=== PATIENT | male | born 1965 | race Caucasian/White ===

== ENCOUNTER 2019-06-17 06:01 | Observation (INO) | payer OTHER, SELFPAY ==
[2019-06-17] VITALS (20 sets, daily range): BP systolic 106–167; BP diastolic 61–95; PULSE 46–75; RESP 16–20; TEMP 36.2–36.6; O2SAT 94–99; BMI 28.3; BMI 28.0; BMI 28.1
--- NOTE | 2019-06-17 06:08 | ED.RN ---
called for ekg per rn request. no old ekgs in [facility]
--- NOTE | 2019-06-17 06:18 | RAD_ITS ---
STUDY: X-RAY CHEST REASON FOR EXAM: Male, 54 years old. Chest pain TECHNIQUE: Frontal and lateral views of the chest. COMPARISON: None. FINDINGS: Basal atelectasis/infiltrate. No focal consolidation. No pneumothorax. No pleural effusion. Normal size heart. Aortic calcifications. There are diffuse degenerative changes of the visualized thoracic spine. Cervical spine fusion device. There is degenerative osteoarthritis of the bilateral shoulders. Moderate stool in the visualized colon. RAD/Chest PA and Lateral IMPRESSION: Bilateral basilar atelectasis/infiltrate. No focal consolidation. Electronically Signed: Chadwick Alvarez, at 6:49 EDT Tel , Service support ,
--- NOTE | 2019-06-17 06:18 | EKG12_ITS ---
Test Reason : CP Blood Pressure : / mmHG Vent. Rate : 058 BPM Atrial Rate : 058 BPM P-R Int : 152 ms QRS Dur : 094 ms QT Int : 430 ms P-R-T Axes : 048 053 040 degrees QTc Int : 422 ms Sinus bradycardia with sinus arrhythmia Possible Left atrial enlargement Borderline ECG Confirmed by ARVIN SAUER, MEGHAN ([id number]), commissioning editor LEX SHAVER ([id number]) on 06/19/2019 1:48:03 PM Referred By: ARIADNA Confirmed By:MARIBEL SHERIDAN MD
--- NOTE | 2019-06-17 06:19 | ED.VIS.GEN ---
History of Present Illness Chief Complaint: Chest Pain Narrative: This patient is a 54-year-old male who presents with chest pain. This is actually been occurring for the last couple of weeks. He runs every other day. During his runs he develops central chest tightness with pain radiating down his left arm. He rates the severity is about 5 out of 10. Today his symptoms were worsening also felt like he had a collar around his neck. Currently he only complains of minimal discomfort. He does develop dyspnea with the chest tightness as well. No nausea no diaphoresis, no dizziness. He has no known history of coronary disease. In fact he has no medical history. He denies diabetes hypertension hyperlipidemia. He is not a smoker. He has a sibling who has atrial fibrillation and his father recently had a quadruple bypass but is greater than 80 years old. Past Medical History - Allergies and Home Meds Allergies/Adverse Reactions: Allergies azithromycin [From Zithromax] Adverse Reaction (Verified 06/17/19 06:04) Unknown Primary Care Physician: Dayton Dyer III, MD [Primary Care Provider] - Past Medical History: None Smoking Status: Never smoker Review of Systems All systems negative except as indicated General: Denies: Fever Cardiovascular: Reports: Chest pain Respiratory: Reports: Dyspnea Gastrointestinal: Denies: Nausea, Vomiting Physical Exam Vital Signs/Narrative: Vital Signs Temp Pulse Resp BP Pulse Ox 06/17/19 06:07 57 L 20 H 132/95 H 99 06/17/19 06:02 97.8 F 69 16 99 General: Well nourished, Well developed Head: Normocephalic Eyes: EOMI ENT: Moist mucous membranes Neck: Supple Cardiovascular: Regular rate, Regular rhythm Respiratory: No distress, CTA bilaterally Abdomen: Soft, Nontender Skin: Normal color Neurological: Alert Psychological: Normal affect Diagnostic/Tx/Re-eval - Medical Decision Making EKG shows sinus bradycardia at a rate of 58. No acute ischemic changes. Normal axis. Patient was given aspirin. Laboratory studies and imaging as above. Troponin did return elevated at 0.068. Chest x-ray was read as bibasilar atelectasis or infiltrate. He does not have infectious symptoms such as cough fever. He only has shortness of breath with exertion. I do not believe this represents an infectious process. I spoke to Dr. Dye on-call for cardiology. He notes that likely the patient will likely need cardiac catheterization. He asked that we also give Brilinta and keep the patient n.p.o. for possible cardiac catheterization today. Patient will be discussed with the hospitalist and admitted. ED Disposition - Plan for ED Patient: Disposition: Acute Care Hospital [facility] Diagnosis: Chest pain, Elevated troponin Referrals: Dayton Dyer III, MD [Primary Care Provider] -
[2019-06-17 06:25] LABS: Absolute Lymphocyte Count 1.75 X10^3/uL (0.83-4.51); Absolute Neutrophil Count 5.7 X10^3/uL (2.0-7.7); Basophil# 0.03 X10^3/uL; Basophil% 0.4 % (0-1); Eosinophil# 0.07 X10^3/uL; Eosinophils% 0.8 % (0-5); Hematocrit 45.3 % (40-54); Hemoglobin 15.2 g/dL (13.0-16.5); Lymphocyte # 1.75 X10^3/ul (4.0); Lymphocyte % 21.1 % (19-41); Mean Corp Hgb Conc 33.6 g/dL (32-36); Mean Corpuscular Hgb 31.5 pg (27.0-32.0); Mean Platelet Vol. 11.1 fl (6.2-12.0); Monocyte# 0.76 X10^3/uL; Monocyte% 9.2 % (0-10); NRBC Flagged by Analyzer 0 % (0-5); Neutrophil # 5.67 X10^3/uL (2.7-7.7); Neutrophil % 68.3 % (47-70); Platelet Count 200 K/mm3 (150-450); RBC Distribution Width CV 12.4 % (11.6-14.6); RBC Distribution Width SD 43.2 fl (35.1-43.9); Red Blood Count 4.82 M/mm3 (4.6-6.2); White Blood Count 8.3 K/mm3 (4.4-11.0)
[2019-06-17 06:41] LABS: BUN 19 mg/dL (7-18); BUN/Creat Ratio 18.3 RATIO (10-20); Calcium,Total 9.2 mg/dL (8.5-10.1); Creatinine, Serum 1.04 mg/dL (0.70-1.30); EST Glomerular Filtration Rate 79 mL/min (>60); Est Glom Filt Rate - Afr Amer 95 mL/min (>60); Estimated Creatinine Clearance 79.31 ml/min; Glucose 76 mg/dL (74-106)
[2019-06-17 06:42] LABS: Anion Gap 4 (5-15); Chloride 107 mmol/L (98-107); Potassium 4.1 mmol/L (3.5-5.1); Sodium Level 140 mmol/L (136-145)
[2019-06-17] MEDS: Aspirin 81 MG TAB.CHEW 324 MG PO (06:51)
[2019-06-17] MEDS: TICAGRELOR 90 MG TABLET 180 MG PO (07:03)
--- NOTE | 2019-06-17 07:15 | NURSING ---
DR ANTHONY FOR DR ROSENTHAL
--- NOTE | 2019-06-17 07:26 | NURSING ---
104 RAJ CP, BORDERLINE ELEVATED TROP
--- NOTE | 2019-06-17 08:06 | PCM.HP.STD ---
Problem List (1) Unstable angina Status: Acute (2) Chest pain Status: Acute (3) Elevated troponin Status: Acute History of Present Illness Date of Admission: 06/17/19 Chief Complaint: Chest pain. The patient is a 54 year old M with no significant past medical history presented to the emergency room because of chest pain. Symptoms has been going on for about 2 weeks with chest pain, intermittent, exertional when he rides his bike and runs, described as chest tightness, 5 out of 10 in severity, radiates to his neck as well as left upper extremity, relieved by rest and no other associated symptoms. This pain has been going on for 2 weeks and it comes on only when he rides his bike and runs. He has no pain at rest. Patient mentioned that usually the pain lasts for several minutes but this morning, the pain was there for at least 30 minutes and he decided to come to the emergency department. At this time, he has no pain. In the emergency department, his vital signs are stable. His routine blood work was unremarkable. EKG revealed sinus bradycardia, normal RI interval, normal QRS, no acute ischemic changes. His troponin is 0.068. Chest x-ray showed no acute findings. He is being admitted for chest pain with borderline elevated troponin for evaluation and symptoms are suggestive of unstable angina versus acute non-ST elevation NV. Past Medical History Allergies azithromycin [From Zithromax] Adverse Reaction (Verified 06/17/19 06:04) Unknown Home Medications: Ambulatory Orders Medication Instructions Recorded NK 06/17/19 Surgical History: appendectomy, cholecystectomy, herniorrhaphy, - - Neck surgery. Psychiatric History: No pertinent psych hx Lives: Spouse/ Significant Other Smoking Status: Never smoker Alcohol: Occasional Drugs: None - *Family History Maternal History Items: - - Rheumatoid arthritis, atrial fibrillation. Paternal History Items: Heart Disease, - - CABG. Review of Systems Constitutional: Denies: Anorexia, Chills, Fever, Weakness Eyes: Denies: Blurred vision, Double vision, Drainage, Redness HEENT: Denies: Difficulty Hearing, Ear Pain, Eye Pain, Nasal Congestion, Sore Throat Cardiovascular: Reports: Chest Pain, Chest Tightness. Denies: Heaviness, Light Headedness, Orthopnea, Palpitations, Paroxysmal Noc. Dyspnea, Syncope Respiratory: Denies: Cough, Pleuritic Pain, Shortness of Breath, Sputum production, Wheezing Gastrointestinal: Denies: Abdominal Pain, Constipation, Diarrhea, Nausea, Vomiting Genitourinary: Denies: Dysuria, Frequency, Hematuria Musculoskeletal: Denies: Arm Pain, Back Pain, Foot Pain Skin: Denies: Dryness, Rash Neurological: Denies: Balance problems, Blurred vision, Change in Speech, Slurred speech, Confusion, Headaches Psychiatric: Denies: Anxiety, Depression Endocrine: Denies: Change in Body Habitus, Polydipsia, Polyuria VTE Information - Inpt Only VTE Present on Admission: No VTE Mechan Device Prophylaxis: None VTE Pharm Prophylaxis ordered?: No Patient Problems: Active and Suspected Problems Non-ST elevation NV (NSTEMI) (Acute) Unstable angina (Acute) Chest pain (Acute) Elevated troponin (Acute) - Physical Exam General: Alert, Oriented x3, Cooperative, No apparent distress HEENT: Atraumatic, PERRLA, EOMI, Normocephalic Oral: Moist Mucosa, No Gingival or Mucosal Lesions/ Ulcerations Neck: Supple, No JVD, Negative Carotid Bruits, Trachea Midline, Thyroid Normal Size and Texture Lungs: Clear to auscultation, Normal air movement, No rhonchi, No wheeze, No rales Cardiovascular: Regular rate, Regular Rhythm, Normal S1, Normal S2, No murmurs, PMI Normal Abdomen: Bowel Sounds Present, Soft, Non Tender, Non-Distended, No Hepato-splenomegaly Extremities: No clubbing, No cyanosis, No edema Skin: No rashes, No breakdown Lymphatic: No Cervical, Supraclavicular, or Inguinal Adenopathy Neurological: Cranial nerves II-XII grossly intact, Motor Exam 5/5 strength throughout Psych/Mental Status: Normal Affect, Appropriate, Alert and oriented to time, place, person, mood and affect Vital Signs Temp Pulse Resp BP Pulse Ox 97.2 F L 62 16 167/95 H 98 06/17/19 07:57 06/17/19 07:57 06/17/19 07:57 06/17/19 08:03 06/17/19 07:57 Oxygen Delivery Method Room Air Weight: 189 lb 13.088 oz Body Mass Index (BMI) 28.0 Laboratory Tests Past 24 Hrs 06/17/19 06/17/19 06:08 06:08 WBC 8.3 RBC 4.82 Hgb 15.2 Hct 45.3 MCV 94.0 MCH 31.5 MCHC 33.6 RDW Std Deviation 43.2 RDW Coeff of Rhiannon 12.4 Plt Count 200 MPV 11.1 Immature Gran % (Auto) 0.200 Neut % (Auto) 68.3 Lymph % (Auto) 21.1 [place] % (Auto) 9.2 Eos % (Auto) 0.8 Baso % (Auto) 0.4 Absolute Neuts (auto) 5.7 Absolute Lymphs (auto) 1.75 Nucleated RBC % 0 Sodium 140 Potassium 4.1 Chloride 107 Carbon Dioxide 29.0 Anion Gap 4 L BUN 19 H Creatinine 1.04 Estim Creat Clear Calc 79.31 Est GFR (MDRD) Af Amer 95 Est GFR (MDRD) Non-Af 79 BUN/Creatinine Ratio 18.3 Glucose 76 Calcium 9.2 Troponin I 0.068 H Clinical Impression(s) from Imaging Studies Chest X-Ray 06/17/19 06:18 IMPRESSION: Bilateral basilar atelectasis/infiltrate. No focal consolidation. Electronically Signed: Chadwick Kim, at 6:49 EDT Tel , Service support , Assessment/Plan All Active Problems Non-ST elevation NV (NSTEMI) (Acute) Unstable angina (Acute) Chest pain (Acute) Elevated troponin (Acute) This is a 54 years old male patient presented to the emergency room because of exertional chest pain, found to have borderline elevated troponin and the symptoms are suggestive of unstable angina and is being admitted for evaluation. #1 unstable angina versus acute non-ST elevation NV: EKG reviewed, no acute ischemic changes, revealed bradycardia but patient is an athletic. Routine blood work was unremarkable. Chest x-ray showed no acute findings. No family history of premature CAD. Patient has no significant past medical history and no risk factors for CAD. He is non-smoker. Plan: Admit to PCU for observation, cardiac monitoring, serial cardiac enzymes, start baby aspirin, sublingual nitro glycerin PRN, fasting lipid profile, TSH, cardiology consult, IV fluids, Tylenol PRN, IV antiemetics, pro time and INR. Patient will probably need to go for cardiac catheterization. #2 DVT prophylaxis: Low risk patient, no prophylaxis indicated. This note was generated with Dragon dictation software. It may contain incorrect words, spelling, and punctuation that were not noted in checking the note before signing. Code Visit OBSV E&M: 72369 Initial observation care L3
--- NOTE | 2019-06-17 08:10 | EKG12_ITS ---
Test Reason : Blood Pressure : / mmHG Vent. Rate : 046 BPM Atrial Rate : 046 BPM P-R Int : 140 ms QRS Dur : 094 ms QT Int : 482 ms P-R-T Axes : 034 056 042 degrees QTc Int : 421 ms Sinus bradycardia Otherwise normal ECG Confirmed by VANDANA SAUER, ERROL ([id number]), food expeditor JAMIE MORRIS ([id number]) on 06/19/2019 2:23:52 PM Referred By: YUDI Confirmed By:ERROL ROSS MD
[2019-06-17 08:48] LABS: Thyroid Stim Hormone (TSH) 4.14 uIU/mL (0.358-3.74)
[2019-06-17] MEDS: 0.9% Normal Saline 1,000 ML 75 ML IV (09:01)
[2019-06-17] MEDS: 0.9% NaCl Peripheral Flush Adult/Peds IV (09:01)
--- NOTE | 2019-06-17 09:20 | CON.PCM_ITS ---
Problem List (1) Non-ST elevation MT (NSTEMI) Status: Acute (2) Elevated troponin Status: Acute Reason for Consult Date of Consultation: 06/17/19 History of Present Illness: The patient is a 54 year old white male with no past medical history, on no prescription medications, who presents for concerns of a non-ST segment elevation MT. He states that he is an avid runner and bicycler. He notes recently with his activity he has been noting exertional left-sided chest discomfort radiating down his left arm and now up into the back of his neck. He notes his symptoms appear to improve when he rests. They do not occur at rest or at night. He has not noted a significant change with his respiratory status nor is he had nausea, emesis, or become diaphoretic. He notes that after his 6 mile run this morning his symptoms appeared to be worse. He discussed the case with his who is a F nurse practitioner. She recommended he present to the emergency department for further evaluation. Upon doing so he stated was feeling better. He was noted to have an ECG that demonstrated sinus bradycardia with no acute ECG changes. He had a troponin I level which was considered abnormal. He was treated with aspirin therapy and antiplatelet therapy. He was placed in the PCU for further evaluation and care. He has denied any symptoms such as orthopnea or PND or peripheral pitting edema. There has been no near syncope or syncope. He states his father recently had CAD/MT and CABG at age 89, his mother had a history of CHF thought secondary to corticosteroid use for rheumatoid arthritis, and a brother who has a history of atrial fibrillation. [] Past Medical History Allergies/Adverse Reactions: Allergies azithromycin [From Zithromax] Adverse Reaction (Verified 06/17/19 06:04) Unknown Home Medications: Ambulatory Orders Medication Instructions Recorded NK 06/17/19 Surgical History: appendectomy, cholecystectomy, herniorrhaphy, - - Neck surgery. Psychiatric History: No pertinent psych hx - *Family History Maternal History Items: - - Rheumatoid arthritis, atrial fibrillation. Paternal History Items: Heart Disease, - - CABG. Lives: Spouse/ Significant Other Smoking Status: Never smoker Alcohol: Occasional Drugs: None Review of Systems - Review of Systems General: Denies: Fever, Night Sweats, Fatigue Cardiovascular: Reports: Chest Discomfort, Chest Discomfort with Exertion. Denies: Shortness of Breath, Orthopnea, PND, Peripheral Edema, Palpitations, Lightheadedness, Dizziness, Near Syncope, Syncope Respiratory: Denies: Cough, Sputum Production, Hemoptysis Gastrointestinal: Denies: Hematemesis, Hematochezia, Melena Genitourinary: Denies: Dysuria, Hematuria Skin: Denies: Rash Objective: Vital Signs Temp Pulse Resp BP Pulse Ox 97.2 F L 46 L 16 167/95 H 98 06/17/19 07:57 06/17/19 08:08 06/17/19 07:57 06/17/19 08:03 06/17/19 08:02 Oxygen Delivery Method Room Air Weight: 189 lb 13.088 oz Body Mass Index (BMI) 28.0 Intake and Output for Last 24 Hours 06/15/19 06/16/19 06/17/19 23:59 23:59 23:59 Intake Total 21.25 / 21.25 Balance 21.25 / 21.25 06/17/19 06:08: WBC 8.3, RBC 4.82, Hgb 15.2, Hct 45.3, MCV 94.0, MCH 31.5, MCHC 33.6, Plt Count 200, MPV 11.1, Immature Gran % (Auto) 0.200, Neut % (Auto) 68.3, Lymph % (Auto) 21.1, [place] % (Auto) 9.2, Eos % (Auto) 0.8, Baso % (Auto) 0.4, Absolute Neuts (auto) 5.7, Nucleated RBC % 0 06/17/19 06:08: Sodium 140, Potassium 4.1, Chloride 107, Carbon Dioxide 29.0, Anion Gap 4 L, BUN 19 H, Creatinine 1.04, Est GFR (MDRD) Af Amer 95, Est GFR (MDRD) Non-Af 79, BUN/Creatinine Ratio 18.3, Glucose 76, Calcium 9.2, Troponin I 0.068 H Rhythm: Sinus rhythm/sinus bradycardia EKG: Sinus bradycardia CXR: Preliminary evaluation: No acute cardiopulmonary disease process appreciated: Please see official report Assessment/Plan 1. Non-ST segment elevation MT The patient presents with symptoms concerning for exertional angina pectoris and abnormal troponin I levels compatible with a non-ST segment elevation MT. The present time he appears to be symptomatically hemodynamically stable. He is undergone evaluation as noted above. He has initiated medical management as noted above. At the present time he will continue medical therapy. Is been recommended he proceed with further evaluation with diagnostic cardiac catheterization. The procedure and risks were discussed with him. He was agreeable to this approach. 2. Abnormal troponin I level Thus far there is been no other etiology for his abnormal troponin I level. There is no evidence of an acute INDUSTRIAL MAINTENANCE MILLWRIGHT event, thromboembolic disease, renal insufficiency, sepsis syndrome, etc. Thus the concern is that this is cardiovascular related. He will proceed with follow-up, medical management, and further evaluation as described above. The above was discussed with the patient and his spouse and previously with the [facility] emergency department staff. This note was generated using a voice recognition system and there may be incorrect words, spelling or punctuation that were not noted when reviewing the office note prior to saving.
[2019-06-17 09:34] LABS: International Normalized Ratio 1.1
--- NOTE | 2019-06-17 09:34 | CASEMGMT ---
According to the [facility] services websites, the following are in-network tertiary facilities: [facility], [facility], [place], and [place]. Fransisco AMADO CM
--- NOTE | 2019-06-17 16:41 | ECHOCS_ITS ---
Reason For Study: CP Procedure This was a 2D Doppler, Color Flow transthoracic echocardiogram. The study was technically difficult. Contrast injection was performed. Exam performed portable in patient room. Left Ventricle Normal LV size. Left ventricular systolic function is normal. The estimated ejection fraction is 60 %. No evidence for diastolic dysfunction. No regional wall motion abnormalities noted. Right Ventricle Normal RV size. Normal systolic function. Atria The left atrium is mildly enlarged. Normal right atrium. No doppler evidence for ASD. Mitral Valve There is no mitral annular calcification. Normal mitral valve. Trivial mitral valve insufficiency. Tricuspid Valve Normal tricuspid valve. Trivial tricuspid valve insufficiency. Right ventricular systolic pressure estimated to be 20 mmHg. Aortic Valve Trisinus/trileaflet aortic valve. Normal aortic valve. Pulmonic Valve The pulmonic valve is not well visualized. Great Vessels The aortic root is not well visualized. Pericardium/Pleural No pericardial effusion. Medication Diluted definity 4ml given slow IV push to enhance endocardial definition. MMode/2D Measurements & Calculations LVIDd: 4.4 cm IVSd: 1.4 cm LA dimension: 4.0 cm LVIDs: 3.0 cm LVPWd: 1.2 cm FS: 32.5 % LAV(MOD-bp): 94.5 ml LVAd ap4: 34.2 cm2 SV(MOD-sp4): 53.5 ml LAV(MOD-bp) Indexed: 47.3 ml/m2 EDV(MOD-sp4): 106.4 ml LAV(MOD-sp2): 72.8 ml EDV(sp4-el): 113.2 ml LAV(MOD-sp4): 103.2 ml LVAs ap4: 20.5 cm2 ESV(MOD-sp4): 52.9 ml ESV(sp4-el): 54.8 ml EF(MOD-sp4): 50.3 % EF(sp4-el): 51.5 % SV(sp4-el): 58.3 ml LA A4 area: 29.5 cm2 RA A4 area: 22.0 cm2 Time Measurements MV dec time: 0.18 sec Doppler Measurements & Calculations MV E max fransico: 71.6 cm/sec Lat Peak E' Fransico: 14.6 cm/sec Med Peak E' Fransico: 9.7 cm/sec MV A max fransico: 44.4 cm/sec E/E' lat: 4.9 E/E' med: 7.3 MV E/A: 1.6 MV V2 max: 71.7 cm/sec MV P1/2t max fransico: 72.3 cm/sec Ao V2 max: 140.6 cm/sec MV max P.1 mmHg MV P1/2t: 60.5 msec Ao max P.9 mmHg MV V2 mean: 25.9 cm/sec Ao V2 mean: 88.7 cm/sec MV mean P.37 mmHg MV dec slope: 350.1 cm/sec2 Ao mean P.6 mmHg MV V2 VTI: 26.9 cm MVA(P1/2t): 3.6 cm2 Ao V2 VTI: 30.8 cm LV V1 max: 111.7 cm/sec PA V2 max: 97.3 cm/sec TR max fransico: 208.1 cm/sec LV V1 max P.0 mmHg TR max P.3 mmHg LV V1 mean P.2 mmHg LV V1 mean: 66.8 cm/sec LV V1 VTI: 26.4 cm Interpretation Summary The study was technically difficult. Contrast injection was performed. Left ventricular systolic function is normal. The estimated ejection fraction is 60 %. The left atrium is mildly enlarged. Trivial mitral valve insufficiency. Trivial tricuspid valve insufficiency. Right ventricular systolic pressure estimated to be 20 mmHg. No evidence for diastolic dysfunction. Ordering Physician: Chase Batista Referring Physician: AYESHA Dyer M.D. Performed By: Serjio eBgum RCS
[2019-06-17 17:21] LABS: Free T3 3.1 pg/mL (2.18-3.98); T4 Free Direct 1.16 ng/dL (0.76-1.46)
--- NOTE | 2019-06-17 20:48 | PCM.PN.CARD ---
Subjectve: The patient underwent diagnostic cardiac catheterization earlier this day. Status post cardiac catheterization he appeared to be resting comfortably. Objective: Vital Signs Temp Pulse Resp BP Pulse Ox 97.2 F L 61 16 137/72 H 95 06/17/19 17:48 06/17/19 18:55 06/17/19 17:48 06/17/19 17:48 06/17/19 17:48 Oxygen Delivery Method Room Air Weight: 189 lb 13.088 oz Body Mass Index (BMI) 28.0 Intake and Output for Last 24 Hours 06/15/19 06/16/19 06/17/19 23:59 23:59 23:59 Intake Total 421.25 / 421.25 Balance 421.25 / 421.25 General: Awake, Alert, Oriented x 3, Cooperative, No Acute Distress HEENT: Atraumatic, Normocephalic, PERRL, EOMI, Sclera Non Icteric Oral: Moist Mucosa Neck: Supple, Good ROM, No JVD Lungs: Clear to auscultation Cardiovascular: Regular Rhythm, Normal S1, Normal S2 Vascular: Normal Femoral Pulses Abdomen: Bowel Sounds Present, Soft, Non Tender Extremities: No edema Neurological: No Focal Motor or Sensory Deficit Psych/Mental Status: Appropriate 06/17/19 06:08: WBC 8.3, RBC 4.82, Hgb 15.2, Hct 45.3, MCV 94.0, MCH 31.5, MCHC 33.6, Plt Count 200, MPV 11.1, Immature Gran % (Auto) 0.200, Neut % (Auto) 68.3, Lymph % (Auto) 21.1, [place] % (Auto) 9.2, Eos % (Auto) 0.8, Baso % (Auto) 0.4, Absolute Neuts (auto) 5.7, Nucleated RBC % 0 06/17/19 06:08: Sodium 140, Potassium 4.1, Chloride 107, Carbon Dioxide 29.0, Anion Gap 4 L, BUN 19 H, Creatinine 1.04, Est GFR (MDRD) Af Amer 95, Est GFR (MDRD) Non-Af 79, BUN/Creatinine Ratio 18.3, Glucose 76, Calcium 9.2, Troponin I 0.068 H 06/17/19 09:04: PT 14.0, INR 1.1 06/17/19 09:04: Troponin I 0.068 H Rhythm: Sinus rhythm Medical Necessity - Tobacco Use Smoking Status: Never smoker Assessment/Plan 1. Non-ST segment elevation MS The patient presents with symptoms concerning for exertional angina pectoris and abnormal troponin I levels compatible with a non-ST segment elevation MS. The present time he appears to be symptomatically hemodynamically stable. The patient underwent diagnostic cardiac catheterization earlier this day. His cardiac catheterization demonstrated overall preserved left ventricular wall motion systolic function based upon the images obtained. Also, it appeared to demonstrate that his coronary arteries were patent and angiographically normal-appearing with the exception of the LAD demonstrating a proximal ectatic/aneurysmal segment. He underwent additional evaluation with left coronary artery intracoronary nitroglycerin 200 mcg x 1. His left coronary system appeared to be dilated again did not appear to demonstrate any angiographically significant appearing disease. His case was reviewed and discussed with Eugenio Guo MD of the interventional section. Status post review of the case there did not appear to be any obvious angiographic findings warranting further catheter based diagnostic or therapeutic intervention. It was recommended the patient continue medical management with consideration to aspirin 81 mg p.o. daily, clopidogrel/Plavix 75 mg p.o. daily, and potentially additional agents such as calcium channel antagonist to minimize any potential effects of coronary artery vasospasm that may have contributed to the patient's symptoms/findings, etc. 2. Abnormal troponin I level Thus far there is been no other etiology for his abnormal troponin I level. There is no evidence of an acute SUPERVISOR POWER REACTOR event, thromboembolic disease, renal insufficiency, sepsis syndrome, etc. Based upon no other obvious explanation for the patient's troponin I levels he underwent further evaluation as noted above. The findings are as noted above. At the present time he will continue medical management and follow-up. The above was discussed with the patient and his spouse. This note was generated using a voice recognition system and there may be incorrect words, spelling or punctuation that were not noted when reviewing the office note prior to saving.
[2019-06-18] MEDS: 0.9% Normal Saline 1,000 ML 75 ML IV (02:13)
[2019-06-18 02:59] VITALS: PULSE 40
[2019-06-18 03:50] VITALS: BP 116/68; PULSE 47; RESP 16; TEMP 36.4; O2SAT 95
[2019-06-18 06:05] LABS: Absolute Lymphocyte Count 1.99 X10^3/uL (0.83-4.51); Absolute Neutrophil Count 2.5 X10^3/uL (2.0-7.7); Basophil# 0.04 X10^3/uL; Basophil% 0.7 % (0-1); Eosinophil# 0.33 X10^3/uL; Eosinophils% 6.1 % (0-5); Hemoglobin 14.3 g/dL (13.0-16.5); Lymphocyte # 1.99 X10^3/ul (4.0); Lymphocyte % 36.9 % (19-41); Mean Corp Hgb Conc 32.5 g/dL (32-36); Mean Corpuscular Hgb 30.7 pg (27.0-32.0); Mean Corpuscular Volume 94.4 fL (80-94); Mean Platelet Vol. 11.6 fl (6.2-12.0); Monocyte# 0.55 X10^3/uL; Monocyte% 10.2 % (0-10); NRBC Flagged by Analyzer 0 % (0-5); Neutrophil # 2.47 X10^3/uL (2.7-7.7); Neutrophil % 45.7 % (47-70); Platelet Count 184 K/mm3 (150-450); RBC Distribution Width CV 12.8 % (11.6-14.6); RBC Distribution Width SD 44.1 fl (35.1-43.9); Red Blood Count 4.66 M/mm3 (4.6-6.2); White Blood Count 5.4 K/mm3 (4.4-11.0)
[2019-06-18 06:22] LABS: Anion Gap 8 (5-15); BUN 12 mg/dL (7-18); BUN/Creat Ratio 14.7 RATIO (10-20); Calcium,Total 8.3 mg/dL (8.5-10.1); Chloride 113 mmol/L (98-107); Cholesterol 136 mg/dL (200); Creatinine, Serum 0.82 mg/dL (0.70-1.30); EST Glomerular Filtration Rate 104 mL/min (>60); Est Glom Filt Rate - Afr Amer 126 mL/min (>60); Estimated Creatinine Clearance 97.32 ml/min; Glucose 67 mg/dL (74-106); High Density Lipoprotein 51 mg/dL; Potassium 4.4 mmol/L (3.5-5.1); Sodium Level 144 mmol/L (136-145); Triglycerides 64 mg/dL; Very Low Density Lipoprotein 13 mg/dL (5-40)
[2019-06-18 07:00] VITALS: PULSE 45
[2019-06-18 07:28] VITALS: O2SAT 98
[2019-06-18] MEDS: Aspirin E.C. 81 MG Tablet PO (07:59)
[2019-06-18 08:15] VITALS: O2SAT 98
[2019-06-18 09:50] VITALS: BP 123/62; PULSE 52; RESP 16; TEMP 36.3; O2SAT 96
--- NOTE | 2019-06-18 10:21 | DCINST_ITS ---
- Discharge Diagnoses Current Active Problems: Current Active and Chronic Problems Non-ST elevation NM (NSTEMI) (Acute) Unstable angina (Acute) Chest pain (Acute) Elevated troponin (Acute) You will use the following diet at home:: Regular Your food should be the consistency of: Regular Discharge Activity: Return to Normal Activity Weight Bearing Status: Full weight bearing Call your doctor if you observe: Fever of 101 or Higher, Shortness of breath, Dizziness, Fainting spells, Chest pain, Increased palpitations (irregular heartbeat) Allergies/Adverse Reactions: Allergies azithromycin [From Zithromax] Adverse Reaction (Verified 06/17/19 06:04) Unknown Medications to take at Discharge Amlodipine [Norvasc] 2.5 mg PO DAILY #30 tab 06/18/19 Aspirin E.C. [Ecotrin] 81 mg PO DAILY@0800 #90 tab 06/18/19 Clopidogrel Bisulfate [Plavix] 75 mg PO DAILY #90 tab 06/18/19 The following prescriptions were given: Aspirin E.C. [Ecotrin] 81 mg PO DAILY@0800 #90 tab Prescription Printed Amlodipine [Norvasc] 2.5 mg PO DAILY #30 tab Prescription Printed Clopidogrel Bisulfate [Plavix] 75 mg PO DAILY #90 tab Prescription Printed Primary Care Physician: Dayton Dyer III, MD [Primary Care Provider] - Please follow up with your Primary Care Physician in: 2 weeks. Test Results: Test results from this visit will be discussed in further detail at your follow- up appointment, if applicable. Please Follow Up With: Robson Dye MD When: 4-6 weeks.
[2019-06-18] MEDS: Clopidogrel Bisulfate 75 MG Tablet PO (10:26)
[2019-06-18] MEDS: amLODIPine 2.5 MG Tablet PO (10:31)
--- NOTE | 2019-06-18 10:53 | DS.PCM_ITS ---
Discharge Date and Diagnosis - Problem List Patient Problems: Active and Suspected Problems Non-ST elevation PR (NSTEMI) (Acute) Chest pain (Acute) Elevated troponin (Acute) Date of Admission: 06/17/19 Date of Discharge: 06/18/19 - Primary Discharge Diagnosis Active and Suspected Problems #1 acute non-ST elevation PR with clean coronaries. #2 coronary vasospasm. Hospital Course and Treatment Imaging Results: Clinical Impression(s) from Imaging Studies Chest X-Ray 06/17/19 06:18 IMPRESSION: Bilateral basilar atelectasis/infiltrate. No focal consolidation. Electronically Signed: Chadwick Alvarez, at 6:49 EDT Tel , Service support , Dr. Dye, cardiology. Procedures: 2-D Echocardiogram, Cardiac catheterization, EKG Summary of Care Provided: Patient seen and examined on day of discharge and appeared to be stable to be discharged home. He denies any more chest pain. Denies shortness of breath, palpitation, dizziness or lightheadedness. Apart from bradycardia which is chronic, other vital signs are stable. The patient is a 54 year old M presented to the emergency room because of chest pain, found to have borderline elevated troponin and he was admitted for evaluation. EKG revealed no acute ischemic changes. Troponin was elevated at 0.068. Cardiology consulted and recommended cardiac catheterization. Patient underwent cardiac catheterization that revealed angiographically normal coronary arteries without evidence of stenosis or occlusion that needs interventions. 2D echocardiogram revealed ejection fraction of 60%, normal LV size and function, RVSP of 20. Patient symptoms attributed to coronary vasospasm. Patient was started on aspirin, Plavix and small dose of Norvasc. His routine blood work was unremarkable. Lipid profile revealed total cholesterol of 136, LDL cholesterol of 72 and HDL cholesterol of 51. TSH was slightly elevated at 4.14. Free T4, total T4 and free T3 were normal. Patient had no symptoms or clinical signs suggestive of hypothyroidism. 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 Patient discharged home in a stable medical condition, discharged on aspirin, Plavix and small dose of Norvasc, plan to follow-up with cardiology in 4 to 6 weeks, recommended follow-up with PCP in 2 weeks. Patient Problems: Active and Suspected Problems Non-ST elevation PR (NSTEMI) (Acute) Chest pain (Acute) Elevated troponin (Acute) - Physical Exam General: Alert, Oriented x3, Cooperative, No apparent distress HEENT: Atraumatic, PERRLA, EOMI, Normocephalic Oral: Moist Mucosa, No Gingival or Mucosal Lesions/ Ulcerations Neck: Supple, No JVD, Negative Carotid Bruits, Trachea Midline, Thyroid Normal Size and Texture Lungs: Clear to auscultation, Normal air movement, No rhonchi, No wheeze, No rales Cardiovascular: Regular rate, Regular Rhythm, Normal S1, Normal S2, Bradycardic Abdomen: Bowel Sounds Present, Soft, Non Tender, Non-Distended, No Hepato- splenomegaly Extremities: No clubbing, No cyanosis, No edema Skin: No rashes, No breakdown Lymphatic: No Cervical, Supraclavicular, or Inguinal Adenopathy Neurological: Cranial nerves II-XII grossly intact, Motor Exam 5/5 strength throughout Psych/Mental Status: Normal Affect, Appropriate Vital Signs Temp Pulse Resp BP Pulse Ox 97.3 F L 52 L 16 123/62 H 96 06/18/19 09:50 06/18/19 09:50 06/18/19 09:50 06/18/19 09:50 06/18/19 09:50 Oxygen Delivery Method Room Air Weight: 189 lb 13.088 oz Body Mass Index (BMI) 28.0 Intake and Output for Last 24 Hours 06/16/19 06/17/19 06/18/19 23:59 23:59 23:59 Intake Total 1418.75 / 1418.75 785.0 / 785.0 Balance 1418.75 / 1418.75 785.0 / 785.0 Laboratory Tests Past 24 Hrs 06/17/19 06/18/19 06/18/19 09:04 05:15 05:15 WBC 5.4 RBC 4.66 Hgb 14.3 Hct 44.0 MCV 94.4 H MCH 30.7 MCHC 32.5 RDW Std Deviation 44.1 H RDW Coeff of Rhiannon 12.8 Plt Count 184 MPV 11.6 Immature Gran % (Auto) 0.400 Neut % (Auto) 45.7 L Lymph % (Auto) 36.9 [place] % (Auto) 10.2 H Eos % (Auto) 6.1 H Baso % (Auto) 0.7 Absolute Neuts (auto) 2.5 Absolute Lymphs (auto) 1.99 Nucleated RBC % 0 Sodium 144 Potassium 4.4 Chloride 113 H Carbon Dioxide 23.0 Anion Gap 8 BUN 12 Creatinine 0.82 Estim Creat Clear Calc 97.32 Est GFR (MDRD) Af Amer 126 Est GFR (MDRD) Non-Af 104 BUN/Creatinine Ratio 14.7 Glucose 67 L Calcium 8.3 L Triglycerides 64 Cholesterol 136 LDL Cholesterol 72 VLDL Cholesterol 13 HDL Cholesterol 51 Free T4 1.16 Thyroxine (T4) 9.0 Free T3 pg/dL 3.1 Discharge Activity: Return to Normal Activity Weight Bearing Status: Full weight bearing Call your doctor if you observe: Fever of 101 or Higher, Shortness of breath, Dizziness, Fainting spells, Chest pain, Increased palpitations (irregular heartbeat) Home Medications: Medications to take at Discharge Amlodipine [Norvasc] 2.5 mg PO DAILY #30 tab 06/18/19 Aspirin E.C. [Ecotrin] 81 mg PO DAILY@0800 #90 tab 06/18/19 Clopidogrel Bisulfate [Plavix] 75 mg PO DAILY #90 tab 06/18/19 Following Prescrptions Were Given to Patient: Aspirin E.C. [Ecotrin] 81 mg PO DAILY@0800 #90 tab Prescription Printed Amlodipine [Norvasc] 2.5 mg PO DAILY #30 tab Prescription Printed Clopidogrel Bisulfate [Plavix] 75 mg PO DAILY #90 tab Prescription Printed Primary Care Physician: Dayton Dyer III, MD [Primary Care Provider] - Please follow up with your Primary Care Physician in: 2 weeks. Please Follow Up With: Robson Dye MD When: 4-6 weeks. Disposition: Home Minutes spent on discharge:: 26 Patient Condition:: Stable Medical Necessity - Tobacco Use Smoking Status: Never smoker Meaningful Use Info Meaningful Use Diagnoses (Choose all that apply): None applicable Code Visit OBSV E&M: 12070 Observation care discharge
--- NOTE | 2019-06-18 11:36 | PHA.DC.MC ---
Pharmacy Service has performed discharge medication reconciliation and counseling for this patient. 1. AMLODIPINE 2.5MG BY MOUTH ONCE DAILY 2. ASPIRIN 81MG BY MOUTH ONCE DAILY 3. CLOPIDOGREL 75MG BY MOUTH ONCE DAILY The patient was not on any prescription medications before admission. The patient's discharge medication list was reviewed for discrepancies and discrepancies were resolved. The patient was counseled on the following discharge medications and changes in medications for homegoing were reviewed. The Reason for Use, instructions for use, and potential side effects were reviewed for all new medications. The patient's questions regarding all of their medications were answered. The patient was able to verbally demonstrate an understanding of their discharge medications.
--- NOTE | 2019-06-18 15:56 | PCM.PN.CARD ---
Subjectve: The patient was evaluated earlier this a.m. prior to discharge. At that point in time he had been up and ambulating. He had no recurrent chest discomfort. He had no other new acute symptoms. Objective: Vital Signs Temp Pulse Resp BP Pulse Ox 97.3 F L 52 L 16 123/62 H 96 06/18/19 09:50 06/18/19 09:50 06/18/19 09:50 06/18/19 09:50 06/18/19 09:50 Oxygen Delivery Method Room Air Weight: 189 lb 13.088 oz Body Mass Index (BMI) 28.0 Intake and Output for Last 24 Hours 06/16/19 06/17/19 06/18/19 23:59 23:59 23:59 Intake Total 1418.75 / 1418.75 785.0 / 785.0 Balance 1418.75 / 1418.75 785.0 / 785.0 General: Awake, Alert, Oriented x 3, Cooperative, No Acute Distress HEENT: Atraumatic, Normocephalic, PERRL, EOMI, Sclera Non Icteric Oral: Moist Mucosa Neck: Supple, Good ROM, No JVD Lungs: Clear to auscultation Cardiovascular: Regular Rhythm, Normal S1, Normal S2 Vascular: No Carotid Bruits, Normal Femoral Pulses Abdomen: Bowel Sounds Present, Soft, Non Tender Extremities: No Cyanosis, No Clubbing, No edema Neurological: No Focal Motor or Sensory Deficit Psych/Mental Status: Appropriate 06/18/19 05:15: WBC 5.4, RBC 4.66, Hgb 14.3, Hct 44.0, MCV 94.4 H, MCH 30.7, MCHC 32.5, Plt Count 184, MPV 11.6, Immature Gran % (Auto) 0.400, Neut % (Auto) 45.7 L, Lymph % (Auto) 36.9, [place] % (Auto) 10.2 H, Eos % (Auto) 6.1 H, Baso % (Auto) 0.7, Absolute Neuts (auto) 2.5, Nucleated RBC % 0 06/18/19 05:15: Sodium 144, Potassium 4.4, Chloride 113 H, Carbon Dioxide 23.0, Anion Gap 8, BUN 12, Creatinine 0.82, Est GFR (MDRD) Af Amer 126, Est GFR (MDRD) Non-Af 104, BUN/Creatinine Ratio 14.7, Glucose 67 L, Calcium 8.3 L, Triglycerides 64, Cholesterol 136, LDL Cholesterol 72, VLDL Cholesterol 13, HDL Cholesterol 51 Rhythm: Sinus rhythm/sinus bradycardia Echocardiogram: Interpretation Summary The study was technically difficult. Contrast injection was performed. Left ventricular systolic function is normal. The estimated ejection fraction is 60 %. The left atrium is mildly enlarged. Trivial mitral valve insufficiency. Trivial tricuspid valve insufficiency. Right ventricular systolic pressure estimated to be 20 mmHg. No evidence for diastolic dysfunction. Medical Necessity - Tobacco Use Smoking Status: Never smoker Assessment/Plan 1. Non-ST segment elevation WA The patient presents with symptoms concerning for exertional angina pectoris and abnormal troponin I levels compatible with a non-ST segment elevation WA. The present time he appears to be symptomatically hemodynamically stable. The patient underwent diagnostic cardiac catheterization earlier this day. His cardiac catheterization demonstrated overall preserved left ventricular wall motion systolic function based upon the images obtained. Also, it appeared to demonstrate that his coronary arteries were patent and angiographically normal-appearing with the exception of the LAD demonstrating a proximal ectatic/aneurysmal segment. He underwent additional evaluation with left coronary artery intracoronary nitroglycerin 200 mcg x 1. His left coronary system appeared to be dilated again did not appear to demonstrate any angiographically significant appearing disease. His case was reviewed and discussed with Eugenio Guo MD of the interventional section. Status post review of the case there did not appear to be any obvious angiographic findings warranting further catheter based diagnostic or therapeutic intervention. It was recommended the patient continue medical management with consideration to aspirin 81 mg p.o. daily, clopidogrel/Plavix 75 mg p.o. daily, and potentially additional agents such as calcium channel antagonist to minimize any potential effects of coronary artery vasospasm that may have contributed to the patient's symptoms/findings, etc. 2. Abnormal troponin I level Thus far there is been no other etiology for his abnormal troponin I level. There is no evidence of an acute [employer] event, thromboembolic disease, renal insufficiency, sepsis syndrome, etc. Based upon no other obvious explanation for the patient's troponin I levels he underwent further evaluation as noted above. The findings are as noted above. At the present time he will continue medical management and follow-up. The patient has subsequently been monitored. He appears to be symptomatically and hemodynamically stable. He is undergone evaluation with transthoracic echocardiogram. His left ventricular wall motion appeared to be normal with overall preserved LV systolic function. At the present time the patient will continue medical therapy and be asked to have outpatient cardiovascular follow-up. He will notify the office or present back to the hospital for any concerns in the interim. The patient's case has been previously discussed and reviewed with Dr. Batista. This note was generated using a voice recognition system and there may be incorrect words, spelling or punctuation that were not noted when reviewing the office note prior to saving.
--- NOTE | 2019-06-25 09:59 | CL.D_ITS ---
Patient Name: ZOE RUBALCAVA Study Date: 06/17/2019 Performing: Robson Dye MD Ht: 69 inches 175 cm : 1965 Wt: 189.8 lbs 86 kg Age: 54 Gender: male BSA: 2.02 PROCEDURE(S) PERFORMED GN14-OCB/COR/LV CLINICAL PROFILE AND INDICATIONS Indications: ACS <= 24 hrs Heart Failure: None Stress/Imaging Stress/Image Study Performed: No Angina Classification Anginal Classification w/in 2 Weeks: CCS II CAD Presentations: Non-STEMI. CONCLUSIONS Normal Left Ventricular End Diastolic Pressure Normal LV size, wall motion,and systolic function LVEF: by LV gram 65 % LAD: proximal: sowewhat ectatic / aneurysmal appearing LCA system: s/p IC NTG 200 mcg x 1: dilated and patent with no angiographically significant appearing disease RECOMMENDATIONS Risk factor modification Medical therapy Case discussed / reviewed with Eugenio Guo MD of the Interventional Section of the [facility] DESCRIPTION OF PROCEDURE The patient arrived to the procedure lab. The risks and benefits of the procedure as well as a full d escription of our services here and current unavailability of surgical backup were fully explained to the patient and/or their significant other prior to the catheterization. The Timeout was completed, verifying the correct patient and procedure. The patient's procedural site was prepped and draped in the usual fashion. Local anesthetic was given subcutaneously to right groin region with Lidocaine 2%. Using a modified Seldinger technique, arterial access was obtained via the right femoral artery, a 4 Fr sheath was inserted Left Coronary Artery selective angiography was performed in multiple views us ing a 4 Fr. JL5 catheter. Right Coronary Artery selective angiography was then performed in multiple views using a 4 Fr. 3DRC catheter. Left Ventriculography was performed in RAMIREZ projection using a 4 Fr . Pigtail catheter. LV to AO pullback pressures were then recorded. Left Coronary Artery selective angiography was performed in multiple views using a 4 Fr. JL5 catheter. Left Coronary Arter y selective angiography was performed in multiple views using a 4 Fr. JL4 catheter.The arterial sheat h was pulled and manual compression applied until hemostasis is achieved. CORONARY ANGIOGRAPHY DOMINANCE: Co- Dominant LEFT HEART ASSESSMENT Left Ventricular Ejection Fraction: by LV Gram 65 % Normal LV wall motion Normal Left Ventricular End Diastolic Pressure LVEDP: 12 mmHg LEFT MAIN: Angiographically normal LEFT ANTERIOR DESCENDING ARTERY: PROX LAD: somewhat ectatic / aneurysmal appearing with no obvious angiographically appearing signific ant disease (pre or post IC NTG 200 mcg x 1) CIRCUMFLEX ARTERY: Angiographically normal RIGHT CORONARY ARTERY: Angiographically normal VALVE FINDINGS: Normal Aortic Valve function Normal Mitral Valve function AORTIC ROOT: Angiographically normal COMPLICATIONS No Complications PROCEDURE MEDICATIONS Versed 1 mg IV Oxygen: 2 L/min via nasal cannula Nitro 200 mcg IC 06/17/2019 13:09:22 SUMMARY OF HEMODYNAMIC DATA Time AIR REST ECG 12:22:20 AO 96/59 (78) SA 12:41:45 LV 129/-9, 11 12:51:13 LV 128/-9, 12 12:51:20 LV 123/-8, 13 12:53:24 LV 125/-8, 13 12:53:31 LVp 121/-7, 13 12:53:34 AOp 114/61 (83) 12:53:39 Signed By Robson Dye MD On 06/17/2019 20:34:18 Robson Dye MD
== END 2019-06-18 10:22 | disposition home or self-care (01) ==
LOC: ED 07:05 → PCU 07:27
PROVIDERS: Admitting Provider Hospitalist; Emergency Provider Emergency Medicine; Family Provider Family Medicine; PCP Family Medicine; Visit Provider Hospitalist
DX: I21.4 Non-ST elevation (NSTEMI) myocardial infarction (principal); I20.1 Angina pectoris with documented spasm; I08.1 Rheumatic disorders of both mitral and tricuspid valves
CPT/HCPCS: 36415; 71046; 80048; 80061; 84436; 84439; 84443; 84481; 84484; 85025; 85610; 93005; 93306; 93458; 96360; 96361; 99152; 99153; 99218; 99285; J7030; J7040; Q9957; Q9967; A4216; C1769; C1894; C8929; G0378

== ENCOUNTER 2024-09-14 10:24 | Emergency (ER) | payer OTHER, SELFPAY ==
[2024-09-14 10:26] VITALS: BP 146/92; PULSE 52; RESP 14; TEMP 36.7; O2SAT 98; BMI 29.7
--- NOTE | 2024-09-14 10:38 | EKG12_ITS ---
Test Reason : CP Blood Pressure : */* mmHG Vent. Rate : 52 BPM Atrial Rate : 52 BPM P-R Int : 152 ms QRS Dur : 90 ms QT Int : 446 ms P-R-T Axes : 31 48 45 degrees QTcB Int : 414 ms Sinus bradycardia Otherwise normal ECG Confirmed by VANDANA SAUER, ERROL ([id number]), graphics editor LEX SHAVER ([id number]) on 09/16/2024 6:30:46 AM Referred By: Confirmed By: ERROL ROSS MD
--- NOTE | 2024-09-14 10:50 | RAD_ITS ---
STUDY: X-RAY CHEST REASON FOR EXAM: Male, 59 years old. Chest pain TECHNIQUE: Single AP portable view of the chest. COMPARISON: Comparison is made with prior study dated June 17, 2019. FINDINGS: EKG electrodes are seen. Minimal increased markings at the left lung base suggestive of left basilar atelectasis. There is no demonstrated pleural abnormality. Normal size heart. Normal mediastinum and rachel. Normal visualized pulmonary arteries. There is atherosclerotic tortuosity of the aortic arch and descending thoracic aorta. There are degenerative changes of the visualized thoracic spine. Prior fusion in the lower cervical spine. There is no demonstrated abnormality of the visualized soft tissue structures of the upper abdomen. RAD/Chest 1 View (Portable) IMPRESSION: Mild increased markings at the left lung base suggestive of atelectasis. Electronically Signed: Cristino Mendoza MD at 11:04 EST ,
[2024-09-14 10:51] LABS: Absolute Lymphocyte Count 2.26 X10^3/uL (0.83-4.51); Absolute Neutrophil Count 3.8 X10^3/uL (2.0-7.7); Basophil# 0.07 X10^3/uL; Eosinophil# 0.32 X10^3/uL; Eosinophils% 4.5 % (0-5); Hematocrit 46.6 % (40-54); Hemoglobin 15.2 g/dL (13.0-16.5); Lymphocyte # 2.26 X10^3/ul (0.83-4.51); Lymphocyte % 32.1 % (19-41); Mean Corp Hgb Conc 32.6 g/dL (32-36); Mean Corpuscular Volume 92.1 fL (80-94); Mean Platelet Vol. 10.8 fl (6.2-12.0); Monocyte# 0.61 X10^3/uL; Monocyte% 8.7 % (0-10); NRBC Flagged by Analyzer 0 % (0-5); Neutrophil # 3.76 X10^3/uL (2.7-7.7); Neutrophil % 53.4 % (47-70); Platelet Count 224 K/mm3 (150-450); RBC Distribution Width CV 12.9 % (11.6-14.6); RBC Distribution Width SD 43.6 fl (35.1-43.9); Red Blood Count 5.06 M/mm3 (4.6-6.2)
[2024-09-14 11:11] LABS: Anion Gap 4 (5-15); BUN 13 mg/dL (7-18); BUN/Creat Ratio 12.9 RATIO (10-20); Calcium,Total 9.3 mg/dL (8.5-10.1); Chloride 107 mmol/L (98-107); Creatinine, Serum 1.01 mg/dL (0.70-1.30); EST Glomerular Filtration Rate 80 mL/min (>60); Est Glom Filt Rate - Afr Amer 96 mL/min (>60); Estimated Creatinine Clearance 88.34 ml/min; Glucose 93 mg/dL (74-106); Sodium Level 139 mmol/L (136-145); Troponin-I HS (w/2H Reflex) 107 pg/mL (3.0-78.0)
[2024-09-14 11:28] VITALS: BP 123/86; PULSE 54; RESP 18; O2SAT 97
--- NOTE | 2024-09-14 11:49 | ED.VIS.CHEST ---
HPI History of Present Illness Chief Complaint: Chest Pain Detail of Chief Complaint: Left-sided chest discomfort and jaw discomfort noted upon awakening Informant: patient, spouse/S.O. and PCP (Dr. Kingston his primary care physician did call prior to patient's presentation) Onset/Context/Timing Onset: Today (399) Timing: Continuous Quality: Positive for Aching Location: Left Chest (And left side of the jaw) Current Severity: Mild Maximum Severity: Moderate Worsened By: Nothing Relieved By: Nothing (Improved slightly after first nitro. No improvement after second nitro and nitro administered by Dr. Kingston) Associated Symptoms: Positive for Nausea and Dyspnea; Negative for Vomiting, Diaphoresis, Cough, Fever, Lightheadedness, Acid Reflux or Palpitations Narrative Narrative: Patient is a 59-year-old male. History of non-ST elevation VA. Thought to be due to vasospasm. Dr. Dye's cath report was reviewed. He had ectatic appearing LAD with question of aneurysm. Dr. Guo was consulted regarding intervention. None was undertaken. Patient runs approximately 3 miles when he goes out. He states he was running 3 times a week. Past week he is only gone once because of weather. He denied dyspnea or chest discomfort compared to normal. Patient denies history of esophagitis, GERD, hiatal hernia peptic OCs. He is status postcholecystectomy. He never smoked. He did receive 4 aspirin prior to arrival. He took a nitro this morning at 0600. He reported mild improvement. Second nitro was taken 10 minutes later. He reported no improvement. He was seen by his physician Dr. Kingston. Dr. Kingston gave him a nitro with no improvement. He presents for evaluation. Patient denies dyspnea, dyspnea exertion or orthopnea. Patient denies black or maroon-colored stool. There is no history of GI pathology. As noted he is status postcholecystectomy. He has no intolerance to greasy or fried foods. He denies history of VTE. He has no risk factors for VTE. The nitro he took at home had a slight Zing. He states the nitro administered by Dr. Kingston caused him to have a headache. Prior Similar Symptoms: No Recent Illness/Hospitalization: No CVD Risk Factors: Positive for Hypercholesterolemia, Family History 1' </=55 and - (Non-ST elevation VA 2018); Negative for Hypertension, Diabetes or Smoking PE Risk Factors: Negative for Recent Travel/Surgery, Recent Immobilization, Prior DVT or PE, Cancer or OCP + Smoking + >/=35 TAD Risk Factors: Negative for Marfan's Syndrome, Hypertension or Family History PFSH PFSH Medical History Asthma Coronary vasospasm Non-ST elevation VA (NSTEMI) Home Medications ?Medication ?Instructions ?Recorded ?Last Taken ?Type aspirin 81 mg tablet,delayed 81 mg PO DAILY@0800 #90 tabs 06/18/19 Unknown Rx release isosorbide mononitrate 30 mg 30 mg PO DAILY #30 tabs 07/06/19 Unknown Rx tablet,extended release 24 hr ezetimibe 10 mg tablet 10 mg PO DAILY 09/14/24 Unknown History nitroglycerin 0.4 mg sublingual mg sublingual 09/14/24 Unknown History tablet pravastatin 20 mg tablet 20 mg PO DAILY 09/14/24 Unknown History Allergy/AdvReac Type Severity Reaction Status Date / Time azithromycin (From Zithromax) AdvReac Unknown Verified 09/14/24 10:26 Surgical History Hx of hernia repair Hx of neck surgery Hx of appendectomy Hx of cholecystectomy Social History Smoking Status: Never smoker ROS ROS ED Constitutional Constitutional ED: Denies chills, fever(s), subjective or sweats Eyes Eyes: Reports none ENT ENT ED: Denies ear pain or rhinorrhea Cardiovascular Cardiovascular: Reports as per HPI; Denies orthopnea or paroxysmal nocturnal dyspnea Respiratory/Chest Respiratory/Chest: Denies cough, dyspnea, dyspnea on exertion, orthopnea or paroxysmal nocturnal dyspnea Gastrointestinal Gastrointestinal: Denies abdominal pain, melena, nausea or vomiting Genitourinary Genitourinary ED: Denies dysuria, hematuria or urinary frequency Musculoskeletal Musculoskeletal: Denies arthralgias, back pain or neck pain Integumentary Denies abscess or rash Neurologic Neurologic: Denies headache(s) or paresthesias Endocrine Endocrinology: Denies cold intolerance or heat intolerance Hematologic/Lymphatic Hematologic/Lymphatic: Denies easy bleeding or easy bruising EXAM Physical Exam Const Vital Signs: 09/14/24 10:26 09/14/24 10:30 09/14/24 10:41 Temperature 98.1 F Temperature Source Oral Pulse Rate 52 L Respiratory Rate 14 Respiratory Effort Normal Non-Labored Blood Pressure 146/92 H Blood Pressure Mean 110 Pulse Ox 98 Oxygen Delivery Method Room Air Room Air 09/14/24 11:28 09/14/24 12:20 09/14/24 13:00 Temperature Temperature Source Pulse Rate 54 L 52 L 50 L Respiratory Rate 18 16 12 Respiratory Effort Blood Pressure 123/86 H 114/75 115/80 Blood Pressure Mean 98 88 91 Pulse Ox 97 96 98 Oxygen Delivery Method Room Air Room Air Room Air 09/14/24 14:22 Temperature Temperature Source Pulse Rate 55 L Respiratory Rate 11 L Respiratory Effort Blood Pressure 122/85 H Blood Pressure Mean 97 Pulse Ox 97 Oxygen Delivery Method Positive well nourished and well developed General Appearance ED: well developed and NAD; Negative for pallor HEENT Reports moist mucous membranes normocephalic and atraumatic Eyes PERRL and EOMs intact bilaterally General Eye ED: Negative for pale conjunctiva or scleral icterus Neck no lymphadenopathy, supple and no JVD Chest Wall inspection of chest normal and palpation of chest normal Resp normal respiratory effort and clear to auscultation bilaterally Cardio regular rhythm, S1 normal heart sound, S2 normal heart sound and no murmurs Rate: bradycardia Peripheral Pulses: pulses 2+ throughout GI normal to inspection, nondistended, normoactive bowel sounds, soft to palpation, non-tender, non-distended and no masses; Negative for hepatosplenomegaly Back/Spine no CVA tenderness and no thoracic nor lumbar tenderness Neuro oriented x3 and CN's II-XII intact bilaterally Sensorium / Orientation: awake and alert Psych mental status grossly normal Skin no rashes or lesions noted and no wounds General Skin Exam: Negative for jaundice or pallor Heart Score History: Slightly/Non-Suspicious ECG: Normal Age: >45 - <65 years Risk Factors: 1 or 2 Risk Factors Troponin: >1 - <3 Normal Limit Score: 3 MDM MDM MDM Narrative Medical decision making narrative: With history of coronary disease and patient having chest pain we will obtain serial enzymes, EKG to assess for acute ischemia, blood work to assess for anemia, renal function etc. Lab Data Attestation: I reviewed the patient's lab results. Lab results narrative: CBC is unremarkable. Electrolyte panel is normal. Troponin is elevated 107. Labs: Laboratory Results - last 24 hr 09/14/24 09/14/24 10:15 12:26 WBC 7.0 RBC 5.06 Hgb 15.2 Hct 46.6 MCV 92.1 MCH 30.0 MCHC 32.6 RDW Std Deviation 43.6 RDW Coeff of Rhiannon 12.9 Plt Count 224 MPV 10.8 Immature Gran % (Auto) 0.300 Neut % (Auto) 53.4 Lymph % (Auto) 32.1 [place] % (Auto) 8.7 Eos % (Auto) 4.5 Baso % (Auto) 1.0 Absolute Neuts (auto) 3.8 Absolute Lymphs (auto) 2.26 Nucleated RBC % 0 Sodium 139 Potassium 4.0 Chloride 107 Carbon Dioxide 29.0 Anion Gap 4 L BUN 13 Creatinine 1.01 Estim Creat Clear Calc 88.34 Est GFR (MDRD) Af Amer 96 Est GFR (MDRD) Non-Af 80 BUN/Creatinine Ratio 12.9 Glucose 93 Calcium 9.3 Troponin I High Sens 107 H 86 H Radiography Chest X-Ray - ED: 1 View and Read by ED Physician (Cardiac silhouette size normal. For inspiratory volume. This may be reason for increased interstitial markings noted on the left. [place] is normal. There is no widening. Osseous structures are unremarkable.) Diagnostic Testing: Clinical Impression(s) from Imaging Studies Chest X-Ray 09/14/24 10:50 IMPRESSION: Mild increased markings at the left lung base suggestive of atelectasis. Electronically Signed: Cristino Mendoza MD at 11:04 EST , EKG Initial EKG: Attestation: I personally reviewed and interpreted this EKG as follows: Interpretation: Sinus Bradycardia (Rate is 52. The EKG is otherwise normal. NC interval is 152 ms. Cures duration 90 ms. QT duration 446 ms. [place] is normal. Patient and states he has a slow heart rate. 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 Pappas is on for cardiology. Plan is outpatient stress test since delta is -23. 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 He does not have an appointment however until November 19.) Treatment and Re-Evaluation :: Patient is scheduled for a outpatient stress test on September 16. This was arranged through Dr. Loja's office. Discharge Plan Triage Chief Complaint: Chest Pain ED Provider: Milton Monroe Dx/Rx/DC Orders Clinical Impression: Chest pain, Elevated troponin I level, Coronary vasospasm, Hypercholesterolemia Instructions: ED Chest Pain, Uncertain Cause Prescriptions: No Action isosorbide mononitrate 30 mg tablet extended release 24 hr 30 mg PO DAILY Qty: 30 3RF aspirin 81 MG tablet 81 mg PO DAILY@0800 Qty: 90 0RF nitroglycerin 0.4 mg tablet, sublingual sublingual pravastatin 20 mg tablet 20 mg PO DAILY ezetimibe 10 mg tablet 10 mg PO DAILY Primary Care Provider: Kevon Kingston Referrals: Kevon Kingston MD [Primary Care Provider] - Print Language: Bol[place]ian Disposition Disposition: Home, Self Care
[2024-09-14 12:20] VITALS: BP 114/75; PULSE 52; RESP 16; O2SAT 96
[2024-09-14 12:47] LABS: Reflex Troponin-HS? (from REC) Y
[2024-09-14 13:00] VITALS: BP 115/80; PULSE 50; RESP 12; O2SAT 98
[2024-09-14 13:10] LABS: Troponin-I HS 86 pg/mL (3.0-78.0)
[2024-09-14 14:22] VITALS: BP 122/85; PULSE 55; RESP 11; O2SAT 97
[2024-09-14 15:07] VITALS: BP 111/84; PULSE 67; RESP 11; O2SAT 96
== END 2024-09-14 15:18 | disposition home or self-care (01) ==
PROVIDERS: Emergency Provider Emergency Medicine; PCP Family Medicine; Visit Provider Emergency Medicine
DX: R07.89 Other chest pain (principal); R79.89 Other specified abnormal findings of blood chemistry; I10 Essential (primary) hypertension; I25.2 Old myocardial infarction; I25.111 Atherosclerotic heart disease of native coronary artery with angina pectoris with documented spasm; E78.00 Pure hypercholesterolemia, unspecified; Z88.1 Allergy status to other antibiotic agents; Z90.49 Acquired absence of other specified parts of digestive tract; Z79.82 Long term (current) use of aspirin; Z79.899 Other long term (current) drug therapy
CPT/HCPCS: 71045; 80048; 84484; 85025; 93005; 99285

== ENCOUNTER → 2024-09-16 | Outpatient (CLI) | payer OTHER, SELFPAY ==
--- NOTE | 2024-09-16 20:51 | STRESSREP_ITS ---
Stress Test Report Exercise myocardial perfusion stress test. 59-year-old man with a history of chest pain Stress protocol: Resting EKG demonstrates normal sinus rhythm with a rate of 58 bpm resting blood pressure is 106/62 mmHg. The patient exercised according to the regular Tu protocol for a total duration of 10 minutes and 16 seconds attaining a maximum heart rate of 157 bpm which was 98% of maximum predicted heart rate; the maximum workload was 13.4 metabolic equivalents. At rest there were no ST or T wave changes noted to suggest ischemia and at peak exercise upsloping ST changes only were noted which did not meet the criteria for ischemia. No clinical angina was noted the test was terminated due to the target heart rate being achieved/fati adrián. The peak blood pressure was 188/70 mmHg. Rate-pressure product was 18141b. Myocardial perfusion protocol. 14.7 mCi of technetium 99m sestamibi was injected at rest. The patient exercised according to regular Tu protocol for total duration of 10 minutes and 16 seconds and at peak exercise 44.4 mCi of technetium 99m sestamibi was injected stress images were obtained stress and rest images were reconstructed in comparing the short axis vertical long and horizontal long axis. Gated images were also obtained. Perfusion SPECT analysis: Review of the stress images demonstrate normal uptake of tracer noted in all areas of the myocardium. The resting images similarly demonstrate normal uptake of tracer noted in all areas of the myocardium. No areas of reversibility are noted to suggest ischemia no previous infarct was noted. Gated SPECT analysis: The gated ejection fraction is 63%. Conclusion: Normal exercise myocardial perfusion stress test at a high workload Preserved ejection fraction.
== END | disposition home or self-care (01) ==
PROVIDERS: PCP Family Medicine; Referring Provider Internal Medicine Cardiovascular Disease; Visit Provider Internal Medicine Cardiovascular Disease
DX: R07.9 Chest pain, unspecified (principal); I25.2 Old myocardial infarction
CPT/HCPCS: 78452; 93017; A9500; A4216